=== PATIENT | male | born 1975 | race Caucasian/White ===

== ENCOUNTER 2019-08-15 20:02 | Emergency (ER) | payer OTHER ==
[~2019-08-15] VITALS: Ht 172.7 cm; Wt 77.3 kg
[2019-08-15 20:29] VITALS: TEMP 97.8
[2019-08-15] MEDS ORDERED: TOPAMAX 25MG25 M1 PO (21:05)
[2019-08-15] MEDS ORDERED: ZYBAN150 M1 (21:05)
[2019-08-15] MEDS ORDERED: AMOXICILLIN 8751 TAB PO (21:27)
[2019-08-15] MEDS ORDERED: TRIAMCINOLONE AC0.13 TOP (21:27)
[2019-08-15 21:30] VITALS: BP 144/70; PULSE 68
== END 2019-08-15 21:32 | disposition home or self-care (01) ==
LOC: COL.ER 20:02
DX: L30.9 Dermatitis, unspecified (principal); L40.9 Psoriasis, unspecified; L03.116 Cellulitis of left lower limb